=== PATIENT | female | born 1995 | race Caucasian/White ===

== ENCOUNTER 2017-10-14 12:45 | Emergency (ER) | payer MEDICAID, OTHER ==
[~2017-10-14] VITALS: Ht 160 cm; Wt 52.2 kg
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
--- NOTE | 2017-10-14 13:06 | NUR ---
FYI: Pt showed up on tracker at 1305.
[2017-10-14] MEDS ORDERED: HYDROCODONE/APAP 5-325MG TABLET ONE (14:42)
[2017-10-14] MEDS ORDERED: HYDROMORPHONE HCL 2 MG TABLET ONE (14:43)
[2017-10-14] MEDS ORDERED: ALPRAZOLAM 0.5 MG TABLET ONE (14:44)
[2017-10-14] MEDS ORDERED: GABAPENTIN 300 MG CAPSULE ONE (14:44)
[2017-10-14] MEDS ORDERED: HYDROCODONE/APAP 5-325MG TABLET PO ONE (14:45)
[2017-10-14 16:59] VITALS: BP 109/70
--- NOTE | 2017-10-14 17:00 | NUR ---
Patient discharged to home in stable conditon. Written and verbal after care instructions given. Patient verbalizes understanding of instructions.
== END 2017-10-14 17:01 | disposition home or self-care (01) ==
LOC: ER 12:45
DX: S13.4XXA Sprain of ligaments of cervical spine, initial encounter (principal); M54.5 Low back pain; S09.90XA Unspecified injury of head, initial encounter; V49.49XA Driver injured in collision with other motor vehicles in traffic accident, initial encounter; Y93.89 Activity, other specified; Y92.410 Unspecified street and highway as the place of occurrence of the external cause; Y99.8 Other external cause status
CPT/HCPCS: 71045; 72110; 72125; 99284; A4663